=== PATIENT | male | born 1945 | race Caucasian/White ===

== ENCOUNTER 2021-12-28 14:30 | Outpatient (RCR) | payer MEDICARE, OTHER, SELFPAY | END 2022-03-07 11:37 | disposition home or self-care (01) | PROVIDERS: PCP Family Medicine; Visit Provider Family Medicine | DX: M54.42 Lumbago with sciatica, left side (principal); M54.41 Lumbago with sciatica, right side; Z51.89 Encounter for other specified aftercare | CPT/HCPCS: 97110 ==

== ENCOUNTER 2022-09-12 10:30 | Outpatient (RCR) | payer MEDICARE, OTHER, SELFPAY | END 2022-09-12 11:33 | disposition home or self-care (01) | PROVIDERS: PCP Family Medicine; Visit Provider Family Medicine | DX: M25.511 Pain in right shoulder (principal); Z51.89 Encounter for other specified aftercare | CPT/HCPCS: 97110; 97140; 97161 ==

== ENCOUNTER 2023-06-29 09:45 | Outpatient (RCR) | payer MEDICARE, OTHER, SELFPAY | END 2023-08-30 14:06 | disposition home or self-care (01) | PROVIDERS: PCP Family Medicine; Visit Provider Family Medicine | DX: M54.50 Low back pain, unspecified (principal); M79.605 Pain in left leg; M62.81 Muscle weakness (generalized); M54.16 Radiculopathy, lumbar region; Z51.89 Encounter for other specified aftercare | CPT/HCPCS: 97012; 97110; 97140; 97161 ==

== ENCOUNTER 2023-11-08 12:30 | Outpatient (RCR) | payer MEDICARE, OTHER, SELFPAY | END 2024-03-07 23:59 | disposition home or self-care (01) | PROVIDERS: PCP Family Medicine; Visit Provider Student in an Organized Health Care Education/Training Program | DX: M51.37 Other intervertebral disc degeneration, lumbosacral region (principal); Z51.89 Encounter for other specified aftercare | CPT/HCPCS: 97110; 97140; 97161 ==

== ENCOUNTER 2024-10-03 08:06 | Outpatient (CLI) | payer MEDICARE, OTHER, SELFPAY ==
--- NOTE | 2024-10-03 09:49 | P.ANES_ITS ---
Anesthesia Charges Start Date/Time Anesthesia Start Date: 10/03/24 Anesthesia Start Time: 09:22 Stop Date/Time Anesthesia Stop Date: 10/03/24 Anesthesia Stop Time: 09:49 Summary Extremes of Age - Over 70 or under 1: PLANNING DIRECTOR Coding CPT Codes CPT Codes: DOMINIC LWR INTST NDSC NOS - [id number] ([id number]) P2 - PATIENT W/MILD SYST DISEASE, QX - PLANNING DIRECTOR SVC W/ MD MED DIRECTION, QK - INTELLIGENCE AGENT 2-4 CNCRNT ANES PROC Additional Codes: Summary - Extremes of Age - Over 70 or under 1: PLANNING DIRECTOR ([id number])
--- NOTE | 2024-10-03 09:49 | W.ANESCHARGE ---
Anesthesia Charges Start Date/Time Anesthesia Start Date: 10/03/24 Anesthesia Start Time: 09:22 Stop Date/Time Anesthesia Stop Date: 10/03/24 Anesthesia Stop Time: 09:49 Summary Extremes of Age - Over 70 or under 1: ELECTRICAL CAD DESIGNER Coding CPT Codes CPT Codes: DOMINIC LWR INTST NDSC NOS - [id number] ([id number]) P2 - PATIENT W/MILD SYST DISEASE, QX - ELECTRICAL CAD DESIGNER SVC W/ MD MED DIRECTION, QK - HUMAN RESOURCES RECRUITER 2-4 CNCRNT ANES PROC Additional Codes: Summary - Extremes of Age - Over 70 or under 1: ELECTRICAL CAD DESIGNER ([id number])
--- NOTE | 2024-10-03 10:12 | P.ANES_ITS ---
Anesthesia Charges Start Date/Time Anesthesia Start Date: 10/03/24 Anesthesia Start Time: 09:22 Stop Date/Time Anesthesia Stop Date: 10/03/24 Anesthesia Stop Time: 09:49 Coding CPT Codes CPT Codes: DOMINIC LWR INTST NDSC NOS - [id number] ([id number]) P2 - PATIENT W/MILD SYST DISEASE, QK - RN DOCUMENTATION SPECIALIST 2-4 CNCRNT ANES PROC, QX - TAXI TRUCK DRIVER SVC W/ MD MED DIRECTION
--- NOTE | 2024-10-03 10:12 | W.ANESCHARGE ---
Anesthesia Charges Start Date/Time Anesthesia Start Date: 10/03/24 Anesthesia Start Time: 09:22 Stop Date/Time Anesthesia Stop Date: 10/03/24 Anesthesia Stop Time: 09:49 Coding CPT Codes CPT Codes: DOMINIC LWR INTST NDSC NOS - [id number] ([id number]) P2 - PATIENT W/MILD SYST DISEASE, QK - POSTAL CARRIER 2-4 CNCRNT ANES PROC, QX - SCALP TREATMENT OPERATOR SVC W/ MD MED DIRECTION
== END 2024-10-03 08:07 | disposition home or self-care (01) ==
LOC: OP CLINIC 08:08
PROVIDERS: PCP Student in an Organized Health Care Education/Training Program; Visit Provider Internal Medicine Gastroenterology
DX: Z12.11 Encounter for screening for malignant neoplasm of colon (principal); Z86.0101 Personal history of adenomatous and serrated colon polyps; D12.2 Benign neoplasm of ascending colon; D12.4 Benign neoplasm of descending colon
CPT/HCPCS: 00811; 45385; 88305; 99100; J2704